=== PATIENT | female | born 1965 | race Caucasian/White ===

== ENCOUNTER 2020-08-10 18:52 | Outpatient (REF) | payer OTHER, SELFPAY | END 2020-08-10 18:53 | disposition home or self-care (01) | LOC: HO.LNP 18:52 | PROVIDERS: Visit Provider Hospitalist | DX: Z20.828 Contact with and (suspected) exposure to other viral communicable diseases (principal) | CPT/HCPCS: 87635 ==

== ENCOUNTER 2020-08-16 13:24 | Outpatient (REF) | payer OTHER, SELFPAY ==
[2020-08-16 15:10] LABS: MANUAL DIFF FLAG NO
[2020-08-16 15:16] LABS: Basophils Absolute Auto 0.1 X10*3/uL (0.0-0.2); Eosinophils Absolute Auto 0.1 X10*3/uL (0.0-0.4); Eosinophils Percent Auto 0.7 % (0-4); Hematocrit 42.6 % (37-47); Hemoglobin 14.3 g/dl (12.0-16.0); Imm Gran Abs Auto 0.02 X10*3/uL (0.00-0.03); Imm Gran Pct Auto 0.3 % (0.0-0.4); Lymphocytes Absolute Auto 2.5 X10*3/uL (1.2-4.9); Lymphocytes Percent Auto 32.1 % (20-40); Mean Corpuscular HGB Conc 33.6 g/dl (31.0-35.0); Mean Corpuscular Hemoglobin 28.9 pg (27.0-33.0); Mean Corpuscular Volume 86.1 fL (80-98); Mean Platelet Volume 9.5 fL (9.4-12.3); Monocytes Absolute Auto 0.5 X10*3/uL (0.1-1.2); Neutrophils Absolute Auto 4.6 X10*3/uL (2.0-8.3); Neutrophils Percent Auto 59.9 % (45-73); Platelet Count 308 X10*3/uL (160-400); Red Blood Count 4.95 X10*6/uL (4.20-5.50); Red Cell Distribution Width 12.8 % (11.0-16.0); White Blood Count 7.7 X10*3/uL (4.8-10.8)
== END 2020-08-16 13:25 | disposition home or self-care (01) ==
LOC: HO.LAB 13:24
PROVIDERS: PCP Internal Medicine; Referring Provider Internal Medicine; Visit Provider Internal Medicine Pulmonary Disease
DX: Z91.09 Other allergy status, other than to drugs and biological substances (principal)
CPT/HCPCS: 36415; 82785; 85025

== ENCOUNTER → 2020-08-30 15:52 | Outpatient (BNVA) | payer OTHER, SELFPAY | PROVIDERS: PCP Internal Medicine; Visit Provider Internal Medicine Pulmonary Disease | DX: Z76.89 Persons encountering health services in other specified circumstances (principal) ==

== ENCOUNTER → 2020-11-12 08:52 | Outpatient (BNVA) | payer OTHER, SELFPAY | PROVIDERS: PCP Internal Medicine; Visit Provider Advanced Practice Midwife | DX: Z76.89 Persons encountering health services in other specified circumstances (principal) ==

== ENCOUNTER 2020-11-22 08:01 | Outpatient (REF) | payer OTHER, SELFPAY ==
--- NOTE | 2020-11-22 08:34 | XR_ITS ---
EXAMINATION: XR SHOULDER, LEFT CLINICAL INFORMATION: Left shoulder pain. COMPARISON: None. TECHNIQUE: 3 views of the left shoulder. FINDINGS: There is no evidence of acute fracture or dislocation of the left shoulder. No calcific tendinitis. There is minimal spurring and sclerosis inferior aspect of the glenohumeral joint. No significant acromioclavicular joint abnormality. No widening of the coracoclavicular space. Incidentally noted is what appears to be a small left pleural effusion. XR/XR shoulder LT min 2V IMPRESSION: No significant left shoulder abnormality appreciated. Question small left pleural effusion.
== END 2020-11-22 08:02 | disposition home or self-care (01) ==
LOC: HO.HOSX 08:01
PROVIDERS: PCP Internal Medicine; Visit Provider Orthopaedic Surgery
DX: M25.512 Pain in left shoulder (principal); M75.42 Impingement syndrome of left shoulder
CPT/HCPCS: 73030

== ENCOUNTER → 2020-11-29 09:11 | Outpatient (BNVA) | payer OTHER, SELFPAY | PROVIDERS: PCP Internal Medicine; Visit Provider Internal Medicine Pulmonary Disease ==

== ENCOUNTER 2020-12-13 07:00 | Outpatient (RCR) | payer OTHER, SELFPAY ==
--- NOTE | 2020-11-30 06:53 | MHC.PT.EP ---
[facility] [place] Office [place] Office [place] Office [address] George Castro [address] [phone] F: [phone] F: [phone] F: [phone] F: [phone] Physical Therapy Plan of Care Date of Evaluation: 11/29/20 Date of Surgery: none Diagnosis: impingement syndrome of L shoulder Assessment: Patient is a 55 year old R handed female who presents with s/s consistent with L shoulder impingement. She has had progressing s/s for 5+ years that seem to involve her neck at this time. 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 Patient past medical history includes asthma and bipolar disorder. Current impairments include pain, ROM, posture, strength, safety, independence, activity tolerance and functional mobility. Functional limitations include decreased ability to sleep, reach, dress, lift, carry, and perform weight bearing activities.. Patient is motivated with good rehab potential. Skilled PT will address impairments and functional limitations in order to achieve goals. Frequency and Duration: The patient will be seen 2x/week for 5 weeks Short Term Goals: I with HEP - [address] posture reported - 2 weeks AROM flexion to 130, ER to 50, Abduction to 120 - 3 weeks Reconcilement Clerk Goals: pain free sleep - 4 weeks Full pain free AROM - 5 weeks Strength 4/5 grossly - 5 weeks Treatment Plan: Modalities to reduce pain, spasms and effusion. Manual therapy to restore motion and function. Therapeutic exercise to improve strength and flexibility. Neuromuscular re-education for posture and balance. Therapeutic activities to return to functional activities of daily living. Electronically signed by: Osmel Ovalle, PT Please sign and return to therapist. Thank you for your referral.
--- NOTE | 2021-01-21 13:48 | MHC.PT.DC ---
[facility] [place] Office [place] Office [place] Office [address] George Castro 140 [facility] [phone] F: [phone] F: [phone] F: [phone] F: [phone] Physical Therapy Discharge Report Diagnosis: impingement syndrome of L shoulder Date of Surgery: none Date of Evaluation: 11/29/20 Date of Discharge: 12/11/20 Treatments to Date: 3 Cancellations to Date: 0 No Shows to Date: 0 Discharge Status: Independent with HEP Discharge Summary: Issued updated HEP. No adverse reactions. Increased strength intervention pain free. Called back. Feeling good. Self D/C at this time. Electronically signed by: Osmel Ovalle PT Please sign and return to therapist. Thank you for your referral.
== END 2021-01-21 13:59 | disposition home or self-care (01) ==
LOC: HO.PTCHIC 07:00
PROVIDERS: Visit Provider Orthopaedic Surgery
DX: M75.42 Impingement syndrome of left shoulder (principal)
CPT/HCPCS: 97110; 97140; 97162

== ENCOUNTER → 2021-03-29 08:58 | Outpatient (BNVA) | payer OTHER, SELFPAY | PROVIDERS: PCP Internal Medicine; Visit Provider Internal Medicine Pulmonary Disease ==

== ENCOUNTER 2021-09-18 07:44 | Outpatient (REF) | payer OTHER, SELFPAY ==
[2021-09-18 11:32] LABS: Hematocrit 44.1 % (37.0-47.0); Hemoglobin 14.7 g/dl (12.0-16.0); Mean Corpuscular HGB Conc 33.3 g/dl (31.0-35.0); Mean Corpuscular Hemoglobin 28.4 pg (27.0-33.0); Mean Corpuscular Volume 85.1 fL (80.0-98.0); Mean Platelet Volume 10.8 fL (9.4-12.3); Platelet Count 276 X10*3/uL (160-400); Red Blood Count 5.18 X10*6/uL (4.20-5.50); Red Cell Distribution Width 12.5 % (11.0-16.0); White Blood Count 6.1 X10*3/uL (4.8-10.8)
[2021-09-18 12:10] LABS: TSH reflex Free T4 2.18 uIU/mL (0.32-4.0)
[2021-09-18 12:18] LABS: Alanine Aminotransferase 25 U/L (0-31); Albumin Level 4.3 g/dL (3.5-5.0); Alkaline Phosphatase 63 U/L (39-117); Anion Gap 14 (12-20); Aspartate Amino Transferase 23 U/L (5-31); Bilirubin Total 0.3 mg/dL (0.0-1.0); Blood Urea Nitrogen 12 mg/dL (9-16); Calcium 9.4 mg/dL (8.4-10.2); Carbon Dioxide 21 mmol/L (22-29); Chloride 109 mmol/L (96-108); Cholesterol 195 mg/dL; Estimated Glomerular Filt Rate 45; Glucose Fasting 124 mg/dL (60-99); HDL Cholesterol 39 mg/dL; LDL Cholesterol Calculated 110 mg/dl; Potassium 4.4 mmol/L (3.3-5.1); Sodium 140 mmol/L (135-145); Total Protein 7.3 g/dL (6.5-8.0); Triglycerides 233 mg/dL
== END 2021-09-18 07:45 | disposition home or self-care (01) ==
LOC: HO.HMGCLDS 07:44
PROVIDERS: PCP Internal Medicine; Visit Provider Internal Medicine
DX: Z00.00 Encounter for general adult medical examination without abnormal findings (principal); R26.89 Other abnormalities of gait and mobility
CPT/HCPCS: 36415; 80053; 80061; 84443; 85027

== ENCOUNTER 2021-11-04 08:51 | Outpatient (REF) | payer OTHER, SELFPAY | END 2021-11-04 08:52 | disposition home or self-care (01) | LOC: HO.LAB 08:51 | PROVIDERS: Visit Provider Internal Medicine | DX: Z13.89 Encounter for screening for other disorder (principal) | CPT/HCPCS: 36415; 87635; C9803 ==

== ENCOUNTER 2021-11-12 07:01 | Outpatient (RCR) | payer OTHER, SELFPAY ==
[2021-11-12 07:17] VITALS: BP 121/76
--- NOTE | 2021-11-12 14:17 | MHC.PT.EP ---
[facility] [place] Office [place] Office [place] Office [address] George Castro [address] [phone] F: [phone] F: [phone] F: [phone] F: [phone] Physical Therapy Plan of Care Date of Evaluation: Date of Surgery: Diagnosis: VERTIGO, GAIT INSTABILITY Assessment: DEMI IS A PLEASANT 56 YO WHO PRESENTS WITH DECREASED BALANCE WITH DAILY ACTIVITIES. UPON EXAM SHE DEMONSTRATES SLIGHT HYPOACTIVE VOR, DECREASED STATIC BALANCE, DECREASED TOLERANCE TO SLS, ALTERED BALANCE DURING GAIT AND STAIR CLIMBING. SHE WILL BENEFIT FROM PT TO ADDRESS THESE DEFICITS. Frequency and Duration: The patient will be seen 1 X WEEK FOR 6 WEEKS Short Term Goals: INITIATE HOME PROGRAM FOR VOR AND BALANCE IN 2 VISITS Residential Goals: 6 weeks: 1. I with HEP 2. Improve DGI to 20/24 3. Pt to be able to functionally move in all planes without provocation of dizziness and return to PLOF in 4 weeks 4. Pt to be educated on sx and indications to return to therapy when needed 5. To tolerate SLS without UE support x 30 seconds Treatment Plan: Modalities to reduce pain, spasms and effusion. Manual therapy to restore motion and function. Therapeutic exercise to improve strength and flexibility. Neuromuscular re-education for posture and balance. Therapeutic activities to return to functional activities of daily living. Electronically signed by: Mireya Lucas PT, DPT Please sign and return to therapist. Thank you for your referral.
== END 2022-01-03 14:49 | disposition home or self-care (01) ==
LOC: HO.PT 07:01
PROVIDERS: PCP Internal Medicine; Visit Provider Internal Medicine
DX: R42 Dizziness and giddiness (principal); R26.89 Other abnormalities of gait and mobility
CPT/HCPCS: 97112; 97162

== ENCOUNTER 2022-02-20 13:37 | Outpatient (REF) | payer OTHER, SELFPAY ==
[2022-02-20 14:37] LABS: Influenza A PCR NEGATIVE (Negative); Influenza B PCR NEGATIVE (Negative); Resp Syncy Virus RNA Qual PCR NEGATIVE (Negative); SARS COV2 PCR INHOUSE NEGATIVE (Negative)
== END 2022-02-20 13:38 | disposition home or self-care (01) ==
LOC: HO.LNP 13:37
PROVIDERS: Visit Provider Physician Assistant
DX: Z20.822 Contact with and (suspected) exposure to COVID-19 (principal); J06.9 Acute upper respiratory infection, unspecified
CPT/HCPCS: 0241U

== ENCOUNTER 2022-06-18 07:13 | Outpatient (REF) | payer OTHER, SELFPAY ==
[2022-06-18 11:31] LABS: Hematocrit 43.5 % (37.0-47.0); Hemoglobin 14.5 g/dl (12.0-16.0); Mean Corpuscular HGB Conc 33.3 g/dl (31.0-35.0); Mean Corpuscular Hemoglobin 28.6 pg (27.0-33.0); Mean Corpuscular Volume 85.8 fL (80.0-98.0); Platelet Count 294 X10*3/uL (160-400); Red Blood Count 5.07 X10*6/uL (4.20-5.50); Red Cell Distribution Width 12.6 % (11.0-16.0); White Blood Count 5.8 X10*3/uL (4.8-10.8)
[2022-06-18 11:45] LABS: Estimated Average Glucose 97 mg/dL
[2022-06-18 11:56] LABS: Alanine Aminotransferase 17 U/L (0-31); Albumin Level 4.3 g/dL (3.5-5.0); Alkaline Phosphatase 60 U/L (39-117); Anion Gap 15 (12-20); Aspartate Amino Transferase 17 U/L (5-31); Bilirubin Total 0.7 mg/dL (0.0-1.0); Blood Urea Nitrogen 13 mg/dL (9-16); Calcium 9.6 mg/dL (8.4-10.2); Carbon Dioxide 24 mmol/L (22-29); Chloride 106 mmol/L (96-108); Cholesterol 217 mg/dL; Estimated Glomerular Filt Rate 46; Glucose Fasting 119 mg/dL (60-99); HDL Cholesterol 46 mg/dL; LDL Cholesterol Calculated 128 mg/dl; Potassium 4.3 mmol/L (3.3-5.1); Sodium 141 mmol/L (135-145); Total Protein 7.2 g/dL (6.5-8.0); Triglycerides 217 mg/dL
[2022-06-18 12:02] LABS: TSH reflex Free T4 1.44 uIU/mL (0.32-4.0)
[2022-06-18 12:20] LABS: Creatinine Urine 184.24 mg/dL; Microalbum/Creatinine Ratio Ur 5.9 ug/mg cr
== END 2022-06-18 07:14 | disposition home or self-care (01) ==
LOC: HO.HMGCLDS 07:13
PROVIDERS: PCP Internal Medicine; Visit Provider Internal Medicine
DX: E78.5 Hyperlipidemia, unspecified (principal); R73.9 Hyperglycemia, unspecified
CPT/HCPCS: 36415; 80053; 80061; 82043; 83036; 84443; 85027

== ENCOUNTER 2022-06-27 07:31 | Outpatient (REF) | payer OTHER, SELFPAY ==
--- NOTE | ~2022-06-27 | MM_ITS ---
EXAMINATION: MM SCREENING DIGITAL BREAST TOMOSYNTHESIS, BILATERAL CLINICAL INFORMATION: Screening. Asymptomatic. The lifetime risk of breast cancer based on the Tyrer-Cuzick Model is 8%. COMPARISON: Mammography: None TECHNIQUE: Digital breast tomosynthesis is performed in both the craniocaudal and mediolateral oblique views along with computer-aided detection (CAD). Synthesized 2D images are generated from the tomosynthesis. FINDINGS: There are scattered areas of fibroglandular density (ACR BI-RADS breast composition Category b). Within the inferior aspect of the right breast there are two 5 mm circumscribed densities approximately 6 cm and 8 cm from the nipple. There is also noted to be an intramammary lymph node deep within the lateral aspect of the right breast. About the central aspect of the left breast, there is a 6 x 8 mm circumscribed lobular density approximately 4 cm from the nipple. No suspicious grouping of microcalcifications is identified. MM/MM tomosynthesis screening BI IMPRESSION: Bilateral breast densities for further evaluation with spot compression views and possible ultrasound. ASSESSMENT: BI-RADS 0: Incomplete - Need Additional Imaging Evaluation RECOMMENDATION: 1. Additional views of the bilateral breasts. 2. Targeted ultrasound if warranted after review of the additional views. 3. Radiology department staff will contact the patient for additional imaging.
== END 2022-06-27 07:32 | disposition home or self-care (01) ==
LOC: HO.MAMMO 07:31
PROVIDERS: PCP Internal Medicine; Visit Provider Internal Medicine
DX: Z12.31 Encounter for screening mammogram for malignant neoplasm of breast (principal)
CPT/HCPCS: 77063; 77067

== ENCOUNTER 2022-07-21 12:49 | Outpatient (REF) | payer OTHER, SELFPAY ==
--- NOTE | ~2022-07-21 | MM_ITS ---
EXAMINATION: MM DIAGNOSTIC DIGITAL BREAST TOMOSYNTHESIS, BILATERAL US DIAGNOSTIC ULTRASOUND BREAST, BILATERAL CLINICAL INFORMATION: Recall from screening for nodular asymmetry anterior 3:00 left breast and tiny nodularity mid and posterior right breast. TC score 8%. Family history breast cancer, maternal grandmother. COMPARISON: Mammography: 06/27/2022. TECHNIQUE: Digital breast tomosynthesis is performed. 2D images are generated from the tomosynthesis. The following views are obtained: Spot bilateral CC, spot bilateral ML. Ultrasound of each breast is targeted to the areas of recent imaging concern, bilateral outer quadrants. Grayscale imaging and color Doppler are performed without and with harmonics. FINDINGS: Mammography: There are scattered areas of fibroglandular density (ACR BI-RADS breast composition Category b). Additional views left breast demonstrate oval nodular asymmetry central 3:00 position approximately 4 cm from nipple, 0.8 cm. There is mixed fibroglandular and fatty attenuation. No architectural abnormality. Additional views right breast show the 3 small nodular asymmetry to be less conspicuous. There is no architectural abnormality. Ultrasound: Ultrasound left breast demonstrates a 0.7 x 0.4 cm anechoic circumscribed nodule with circumscribed margins and no internal complexity or associated color flow. There is probable mild increased through-transmission of sound, not well visualized. There is a smaller oval nodule 8 cm from nipple posterior 3:00 position measuring 0.2 x 0.4 cm with circumscribed margins and no internal complexity or associated color flow. There is probable mild increased through-transmission of sound, not well visualized. No suspicious nodule or architectural abnormality. Ultrasound right breast demonstrates circumscribed anechoic nodule 9:00 position 6 cm from nipple measuring 0.4 cm and a smaller anechoic nodule 9:00 position 8 cm from nipple measuring 0.3 x 0.2 cm. The additional tiny nodule noted on screening mammography is not visualized by ultrasound. There is no appreciable increased or decreased through transmission of sound. No associated color flow. Results are discussed with the patient at time of visit. The bilateral findings are probably benign, likely cysts. Strong posterior acoustic enhancement is not appreciated on either side. Follow-up mammography in 6 months is recommended. Ultrasound may be performed as needed at same visit. Patient notes having had prior outside mammography at [facility]. Radiology department will attempt to retrieve outside exam for additional comparison in an addendum report. MM/MM tomosynthesis added view BI IMPRESSION: -Benign-appearing bilateral nodularity. -Probable cysts on bilateral targeted ultrasound. ASSESSMENT: BI-RADS 3: Probably Benign RECOMMENDATION: -Bilateral diagnostic mammography in 6 months. -Radiology department will attempt to retrieve prior outside mammography to allow for additional comparison in an addendum report This patient's information was entered into a reminder system with a target due date for their next mammogram.
== END 2022-07-21 12:50 | disposition home or self-care (01) ==
LOC: HO.MAMMO 12:49
PROVIDERS: PCP Internal Medicine; Visit Provider Internal Medicine
DX: R92.2 Inconclusive mammogram (principal)
CPT/HCPCS: 76642; 77062; 77066

== ENCOUNTER 2022-08-12 07:00 | Outpatient (RCR) | payer OTHER, SELFPAY ==
--- NOTE | 2022-07-11 08:11 | MHC.PT.EP ---
[facility] [place] Office [place] Office [place] Office [address] Krystin Castro [address] [phone] F: [phone] F: [phone] F: [phone] F: [phone] Physical Therapy Plan of Care Date of Evaluation: Date of Surgery: Diagnosis: L shoulder pain Assessment: Patient is a 57 year old R handed female who presents with s/s consistent with L shoulder pain. 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 Patient past medical history includes some OA and intermittent vertigo. Current impairments include pain, posture, ROM, strength, activity tolerance and functional mobility. Functional limitations include decreased ability to reach, lift, dress, push, pull, and shower. Patient is motivated with good rehab potential. Skilled PT will address impairments and functional limitations in order to achieve goals. Frequency and Duration: The patient will be seen 2x/week for 5 weeks Short Term Goals: I with HEP - 2 weeks (-) impingement cluster - 3 weeks AROM flex/scap to 120, ER to 60 - 3 weeks Prison Goals: Strength 4+/5 grossly - 5 weeks AROM flex/scap to 140 - 5 weeks Sufficient work modifications - 5 weeks Pain with daily activities 2/10 or less - 5 weeks Treatment Plan: Modalities to reduce pain, spasms and effusion. Manual therapy to restore motion and function. Therapeutic exercise to improve strength and flexibility. Neuromuscular re-education for posture and balance. Therapeutic activities to return to functional activities of daily living. Electronically signed by: Osmel Ovalle, PT Please sign and return to therapist. Thank you for your referral.
--- NOTE | 2022-10-22 09:50 | MHC.PT.DC ---
[facility] [place] Office [place] Office [place] Office [address] George Castro [address] [phone] F: [phone] F: [phone] F: [phone] F: [phone] Physical Therapy Discharge Report Diagnosis: L shoulder pain Date of Surgery: Date of Evaluation: 07/11/22 Date of Discharge: 10/22/22 Treatments to Date: 5 Cancellations to Date: No Shows to Date: Discharge Status: Independent with HEP Discharge Summary: Pt elected to transition exclusively to HEP at this time. 08/12/22: pt has been feeling some pain with abd and ER. I do not know that she has been doing her HEP well. we will continue to progress as tolerated. we will likely change HEP NV. 08/05/22: pt progressing slowly. notes compliance with pulleys at home but seemingly having a tough time with proper mechanics with ex at home. we will continue to work posture and ex mechanics as tolerated. 08/01/22: pt progressed with AAROM and held on UBE. educated in compliance with HEP again as she notes she has not done them with much consistency. we will progress back with strength NV. 07/25/22: pt progressing well with skilled PT. however, she admits she has not been consistent with HEP at this time. encouraged her in the importance of compliance with HEP and correlation between HEP compliance and progress in PT 07/16/22: pt with some soreness after initial evaluation. we did progressed with ROM and strength today but kept HEP the same for the time being. Patient is a 57 year old R handed female who presents with s/s consistent with L shoulder pain. 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 Patient past medical history includes some OA and intermittent vertigo. Current impairments include pain, posture, ROM, strength, activity tolerance and functional mobility. Functional limitations include decreased ability to reach, lift, dress, push, pull, and shower. Patient is motivated with good rehab potential. Skilled PT will address impairments and functional limitations in order to achieve goals. Electronically signed by: Osmel Ovalle, PT Please sign and return to therapist. Thank you for your referral.
== END 2022-10-22 09:50 | disposition home or self-care (01) ==
LOC: HO.PTCHIC 07:00
PROVIDERS: PCP Internal Medicine; Visit Provider Internal Medicine
DX: M75.42 Impingement syndrome of left shoulder (principal)
CPT/HCPCS: 97110; 97161

== ENCOUNTER 2022-10-11 15:38 | Outpatient (REF) | payer OTHER, SELFPAY ==
[2022-10-11 16:41] LABS: Influenza A PCR NEGATIVE (Negative); Influenza B PCR NEGATIVE (Negative); Resp Syncy Virus RNA Qual PCR NEGATIVE (Negative); SARS COV2 PCR INHOUSE NEGATIVE (Negative)
== END 2022-10-11 15:39 | disposition home or self-care (01) ==
LOC: HO.LNP 15:38
PROVIDERS: Visit Provider Physician Assistant
DX: Z20.822 Contact with and (suspected) exposure to COVID-19 (principal); B34.9 Viral infection, unspecified
CPT/HCPCS: 0241U

== ENCOUNTER 2023-01-15 14:46 | Outpatient (REF) | payer OTHER, SELFPAY ==
--- NOTE | ~2023-01-15 | MM_ITS ---
EXAMINATION: MM DIAGNOSTIC DIGITAL BREAST TOMOSYNTHESIS, LEFT CLINICAL INFORMATION: Short interval follow-up nodule anterior upper outer left breast, suspect chronic, better visualized on recent imaging. TC score 8%. COMPARISON: Mammography: 07/21/2022, 06/27/2022 (BI-RADS 0), outside mammography 02/03/2014 ([facility]), ultrasound left breast 07/21/2022. TECHNIQUE: Digital breast tomosynthesis is performed in both the craniocaudal and mediolateral oblique views along with computer-aided detection (CAD). Synthesized 2D images are generated from the tomosynthesis. FINDINGS: There are scattered areas of fibroglandular density (ACR BI-RADS breast composition Category b). Breast tissue composition borders on heterogeneously dense. Fibronodular parenchymal pattern is again seen. Dominant nodule anterior 3:00 position is without significant change, likely chronic possibly present on remote outside 2-D exam 2013. There is no developing density or interval architectural abnormality or abnormal calcifications. There is an dermal lesion overlying the posterior medial left breast. Left breast will be reassessed again at time of annual bilateral mammography, due in 6 months. Results are provided to the patient at time of visit by the technologist. MM/MM tomosynthesis diagnostic LT IMPRESSION: No significant changes from prior exam. ASSESSMENT: BI-RADS 3: Probably Benign RECOMMENDATION: Diagnostic mammography at time of annual bilateral exam, due in 6 months. This patient's information was entered into a reminder system with a target due date for their next mammogram.
== END 2023-01-15 14:47 | disposition home or self-care (01) ==
LOC: HO.MAMMO 14:46
PROVIDERS: Visit Provider Internal Medicine
DX: R92.8 Other abnormal and inconclusive findings on diagnostic imaging of breast (principal)
CPT/HCPCS: 77061; 77065

== ENCOUNTER 2023-10-29 07:31 | Outpatient (AMB) | payer OTHER, SELFPAY ==
--- NOTE | 2023-10-29 07:37 | A.OFFPC_ITS ---
Vital Signs 10/29/23 07:40 Height 5 ft 5 in Weight 207 lb BMI 34.4 BP 104/66 Blood Pressure Location Rt brachial Position Sitting Pulse 88 Pulse Source Pulse Oximeter Pulse Oximetry (%) 94 Oxygen Delivery Method Room Air Intake Visit Reasons: follow up on health issues Intake Note: Patient here to follow up on health concerns. Allergies No Known Allergies Allergy (Verified 10/29/23 07:41) Medication List - Last Reconciled 10/29/23 by Joy Sarkar MD aripiprazole 15 mg PO DAILY clonazepam 1 mg PO TID PRN flu vac [id number] 36mos up(PF) mL IM lamotrigine 300 mg PO quetiapine 50 mg PO BEDTIME trazodone 100 mg PO varicella-zoster [id number] (PF) 50 mcg/0.5 mL 0.5 mL IM DIRECTED Tobacco use date assessed: 06/17/22 Dental Screening Dental Screen Date: 10/29/23 Did you have a dental visit in the last 12 months?: Yes Did you have a dental problem in the last 6 months where you did not have access to dental care?: No Was dental information given to patient?: Patient has dentist HPI follow up on health issues HPI Details Pt presents c/o postnasal drip for a few months. Pt c/o fatigue, muscle and joint aches, headaches, craving sweets. Patient denies fever chills or cough. She complains of persistent bilateral shoulder pain left more than right worse after physical therapy. Patient denies any injury. She has not been physically active. Patient follows up with psychiatrist for bipolar disorder and the dose of Abilify has been recently increased . [facility] Medical History (Updated 10/29/23 @ 08:18 by Joy Sarkar MD) Bipolar 1 disorder Hyperglycemia Hyperlipidemia Vertigo Balance problem Impingement syndrome, shoulder, left Asthma Normal colonoscopy Mammogram normal Normal Pap smear Shoulder pain Obesity (BMI 30-39.9) Surgical History H/O hernia repair Hx of section Family History Maternal Grandmother Breast CA Father No problems noted. Mother No problems noted. Social History Household Members Other:: single, 2 adult children, works as mental health counselor at [employer] Housing: Apartment Alcohol intake: never Patient Tobacco Use Status: Former Tobacco user (15 years ago) Years Smoked: 22-25 yrs e-Cigarette/Vaping Use: Never Used Current occupational status: employed Current occupation: clinical therapist- left handed Cognitive needs: No Hearing needs: No Vision needs: Yes Questionnaire Thrive Questionnaire Date Thrive assessed: 06/17/22 BRENDA-7 AMB Questionnaire BRENDA-7 Date BRENDA - 7 assessed: 06/17/22 Source: Developed by Drs. Adrian Dias, Lila Yoder, Ashwin Hicks and colleagues, with an educational danni from [employer]. Review of Systems Const All systems reviewed & are unremarkable except as noted in HPI and below Reports no additional complaints Eyes Reports no additional complaints ENT Reports no additional complaints Card Reports no additional complaints Resp Reports no additional complaints GI Reports no additional complaints Reports no additional complaints Physical exam (Primary Care) Vital Signs: Last Vital Signs Pulse 88 10/29/23 07:40 BP 104/66 10/29/23 07:40 Pulse Ox 94 10/29/23 07:40 Oxygen Delivery Method Room Air 10/29/23 07:40 BMI result Body Mass Index 34.4 Tobacco/Smoking Status: Tobacco use Status Tobacco use date assessed 06/17/22 10/29/23 07:40 Patient Tobacco Use Status Former Tobacco user (15 10/29/23 07:40 years ago) e-Cigarette/Vaping Use Never Used 10/29/23 07:40 Thrive Assessment: Date of Thrive Assessment Date Thrive assessed 06/17/22 10/29/23 07:40 Const General: no acute distress HENMT Head: Yes normal to inspection Ears: hearing grossly normal bilaterally Face and sinus: Yes normal facial exam and No sinus tenderness Throat: Yes postnasal drainage Eyes General: appearance normal, both eyes and all related structures Resp Effort & Inspection: normal respiratory effort Auscultation: clear to auscultation bilaterally Cardio Rhythm: regular rhythm Heart sounds: S1 normal heart sound present and S2 normal heart sound present GI Inspection: Yes normal to inspection Palpation (GI): Soft to palpation Percussion: Yes normal to percussion Auscultation: normal bowel sounds Extrem Other: Decreased range of motion both shoulders left more than right, there is anterior lateral aspect tenderness of the left shoulder, no soft tissue swelling Assessment and Plan Assessment & Plan (1) Hyperglycemia: Code(s): R73.9 - Hyperglycemia, unspecified Plan: Check fasting labs including A1c (2) Hyperlipidemia: Code(s): E78.5 - Hyperlipidemia, unspecified Plan: Check lipid profile (3) Shoulder pain: Comment: right Code(s): M25.519 - Pain in unspecified shoulder Plan: For persistent bilateral shoulder pain x-rays will be obtained patient will be referred to orthopedic surgeon. Sed rate will be checked for general myalgia (4) Shoulder pain, left: Code(s): M25.512 - Pain in left shoulder (5) Fatigue: Code(s): R53.83 - Other fatigue Plan: Check labs including CBC sed rate TSH. Increase physical activity well-balanced diet discussed with the patient (6) Bipolar 1 disorder: Code(s): F31.9 - Bipolar disorder, unspecified Plan: Continue current medications and follow-up with Psychiatry Orders: Orders Lipid Panel Today E78.5 - Hyperlipidemia, unspecified, M25.512 - Pain in left shoulder, M25.519 - Pain in unspecified shoulder, R73.9 - Hyperglycemia, unspecified Erythrocyte Sedimentation Rate Today E78.5 - Hyperlipidemia, unspecified, M25.512 - Pain in left shoulder, M25.519 - Pain in unspecified shoulder, R73.9 - Hyperglycemia, unspecified Hemoglobin A1c Today E78.5 - Hyperlipidemia, unspecified, M25.512 - Pain in left shoulder, M25.519 - Pain in unspecified shoulder, R73.9 - Hyperglycemia, unspecified Comprehensive Rochert. Panel Fast Today E78.5 - Hyperlipidemia, unspecified, M25.512 - Pain in left shoulder, M25.519 - Pain in unspecified shoulder, R73.9 - Hyperglycemia, unspecified Complete Blood Count Auto Diff Today E78.5 - Hyperlipidemia, unspecified, M25.512 - Pain in left shoulder, M25.519 - Pain in unspecified shoulder, R73.9 - Hyperglycemia, unspecified TSH reflex Free T4 Today E78.5 - Hyperlipidemia, unspecified, M25.512 - Pain in left shoulder, M25.519 - Pain in unspecified shoulder, R73.9 - Hyperglycemia, unspecified Vitamin D 25-OH Total Today E78.5 - Hyperlipidemia, unspecified, M25.512 - Pain in left shoulder, M25.519 - Pain in unspecified shoulder, R73.9 - Hyperglycemia, unspecified Microalbumin, Random (w Creat) Today E78.5 - Hyperlipidemia, unspecified, M25.512 - Pain in left shoulder, M25.519 - Pain in unspecified shoulder, R73.9 - Hyperglycemia, unspecified XR shoulder LT min 2V Today M25.512 - Pain in left shoulder XR shoulder RT min 2V Today M25.519 - Pain in unspecified shoulder Referrals Orthopedics Referral M25.512 - Pain in left shoulder Coding Level of Care Code Est Pt Level 4 (18608) Diagnoses Hyperglycemia R73.9 Hyperlipidemia E78.5 Shoulder pain M25.519 Shoulder pain, left M25.512 Fatigue R53.83 Bipolar 1 disorder F31.9
[2023-10-29 07:40] VITALS: BP 104/66; PULSE 88; O2SAT 94; BMI 34.4
== END 2023-10-29 08:25 | disposition home or self-care (01) ==
PROVIDERS: PCP Internal Medicine; Visit Provider Internal Medicine
DX: R73.9 Hyperglycemia, unspecified (principal); F31.9 Bipolar disorder, unspecified; E78.5 Hyperlipidemia, unspecified; M25.519 Pain in unspecified shoulder; M25.512 Pain in left shoulder; R53.83 Other fatigue
CPT/HCPCS: 99214

== ENCOUNTER 2023-10-29 08:05 | Outpatient (REF) | payer OTHER, SELFPAY ==
[2023-10-29 11:29] LABS: MANUAL DIFF FLAG NO
[2023-10-29 11:49] LABS: Basophils Absolute Auto 0.1 X10*3/uL (0.0-0.2); Basophils Percent Auto 0.8 % (0-2); Eosinophils Absolute Auto 0.1 X10*3/uL (0.0-0.4); Eosinophils Percent Auto 1.8 % (0-4); Hematocrit 40.8 % (37.0-47.0); Imm Gran Abs Auto 0.03 X10*3/uL (0.00-0.03); Imm Gran Pct Auto 0.5 % (0.0-0.4); Lymphocytes Absolute Auto 1.9 X10*3/uL (1.2-4.9); Lymphocytes Percent Auto 28.9 % (20-40); Mean Corpuscular HGB Conc 34.3 g/dl (31.0-35.0); Mean Corpuscular Volume 84.6 fL (80.0-98.0); Mean Platelet Volume 10.1 fL (9.4-12.3); Monocytes Absolute Auto 0.6 X10*3/uL (0.1-1.2); Monocytes Percent Auto 8.5 % (2-11); Neutrophils Absolute Auto 3.9 x10*3/uL (2.0-8.3); Neutrophils Percent Auto 59.5 % (45-73); Platelet Count 285 X10*3/uL (160-400); Red Blood Count 4.82 X10*6/uL (4.20-5.50); Red Cell Distribution Width 12.8 % (11.0-16.0); White Blood Count 6.6 X10*3/uL (4.8-10.8)
[2023-10-29 11:56] LABS: Estimated Average Glucose 103 mg/dL; Hemoglobin A1c % 5.2 % (<6.0)
[2023-10-29 12:14] LABS: Alanine Aminotransferase 22 U/L (0-31); Alkaline Phosphatase 67 U/L (39-117); Anion Gap 15 (12-20); Aspartate Amino Transferase 22 U/L (5-31); Bilirubin Total 0.3 mg/dL (0.0-1.0); Blood Urea Nitrogen 15 mg/dL (9-16); Calcium 9.7 mg/dL (8.4-10.2); Carbon Dioxide 23 mmol/L (22-29); Chloride 108 mmol/L (96-108); Cholesterol 181 mg/dL (<200); Estimated Glomerular Filt Rate 55; Glucose Fasting 106 mg/dL (60-99); HDL Cholesterol 52 mg/dL (>40); LDL Cholesterol Calculated 95 mg/dL (<100); Potassium 3.6 mmol/L (3.3-5.1); Sodium 142 mmol/L (135-145); Total Protein 7.2 g/dL (6.5-8.0); Triglycerides 174 mg/dL (<150)
[2023-10-29 12:35] LABS: Vitamin D 25-OH Total 52.7 ng/mL (>30)
[2023-10-29 12:43] LABS: Creatinine Urine 184.09 mg/dL; Microalbum/Creatinine Ratio Ur 3.8 ug/mg cr (<30)
[2023-10-29 13:02] LABS: Erythrocyte Sedimentation Rate 9 MM/HR (0-20)
== END 2023-10-29 08:06 | disposition home or self-care (01) ==
LOC: HO.HMGCLDS 08:05
PROVIDERS: PCP Internal Medicine; Visit Provider Internal Medicine
DX: R73.9 Hyperglycemia, unspecified (principal); M25.512 Pain in left shoulder; E78.5 Hyperlipidemia, unspecified
CPT/HCPCS: 36415; 80053; 80061; 82043; 82306; 82570; 83036; 84443; 85025; 85652

== ENCOUNTER 2023-12-14 09:17 | Outpatient (AMB) | payer OTHER, SELFPAY ==
--- NOTE | 2023-12-14 09:19 | A.OFFVIS_ITS ---
Intake Intake Visit Reasons: OV-Left shoulder Impingement Intake Note: Joanna is a 58 year old left hand dominant female who presents today for a follow up of her left shoulder Impingement. She was last seen in 2020 for this shoulder but no treatment other than PT was indicated at that time. Patient reports that her shoulder has gotten progressively worse. She has numbness and tingling in the hand. Increased pain with ROM and Lifting Allergies No Known Allergies Allergy (Verified 12/14/23 09:19) HPI OV-Left shoulder Impingement HPI Details Joanna is a 58 year old woman who returns to discuss her left shoulder impingement. She complains of pain with daily activity, worse with ROM & lifting activities. She has completed a course of PT & at-home exercises, but says her shoulder has been getting worse since she was last seen in 2020. [facility] Medical History (Updated 12/14/23 @ 09:54 by Rodriguez Hernandez MD) Bipolar 1 disorder Hyperglycemia Hyperlipidemia Vertigo Balance problem Impingement syndrome, shoulder, left Asthma Normal colonoscopy Mammogram normal Normal Pap smear Shoulder pain Obesity (BMI 30-39.9) Surgical History H/O hernia repair Hx of section Family History Maternal Grandmother Breast CA Father No problems noted. Mother No problems noted. Social History Household Members Other:: single, 2 adult children, works as mental health counselor at [employer] Housing: Apartment Alcohol intake: never Patient Tobacco Use Status: Former Tobacco user (15 years ago) Years Smoked: 22-25 yrs e-Cigarette/Vaping Use: Never Used Current occupational status: employed Current occupation: clinical therapist- left handed Cognitive needs: No Hearing needs: No Vision needs: Yes Review of Systems Const All systems reviewed & are unremarkable except as noted in HPI and below Physical Exam Const General: no acute distress, alert and awake Orientation/consciousness: patient oriented x3 HEENT Head: Yes normocephalic and Yes atraumatic Eyes EOM: EOMs intact bilaterally Resp Effort & Inspection: normal respiratory effort and able to speak in complete sentences Cardio Jugular venous distension: no JVD Skin General skin exam: turgor normal Rashes: no rashes Neuro General: patient oriented x3 Extrem Other: + H/N Painful EC neg lift off ER to 35deg 90/130 with pain is descension Psych Appearance: grossly normal Affect: normal affect Attitude: cooperative Results Reviewed Results Reviewed: unremarkable left shoulderradiographs Assessment & Plan Assessment & Plan (1) Internal derangement of left shoulder: Code(s): M24.812 - Other specific joint derangements of left shoulder, not elsewhere classified Plan: Ongoing left shoulder pain with overhead activity and at night. She is unable to take NSAIDs and PT was unhelpful. Radiographs are unremarkable and she does not want an injection. MRI ordered. Plan Prepared for Rodriguez Hernandez MD by Matt Baird, remote medical coder, on 12/14/23 at 9:25 AM, EST. Orders: Orders MR shoulder LT wo con Today M24.812 - Other specific joint derangements of left shoulder, not elsewhere classified Coding Level of Care Code Est Pt Level 4 (87903) Diagnoses Internal derangement of left shoulder M24.812
== END 2023-12-14 09:36 | disposition home or self-care (01) ==
PROVIDERS: PCP Internal Medicine; Visit Provider Orthopaedic Surgery
DX: M75.42 Impingement syndrome of left shoulder (principal); M24.812 Other specific joint derangements of left shoulder, not elsewhere classified
CPT/HCPCS: 99214

== ENCOUNTER → 2023-12-14 09:17 | Outpatient (BNVA) | payer OTHER, SELFPAY | PROVIDERS: PCP Internal Medicine; Visit Provider Orthopaedic Surgery ==